=== PATIENT | male | born 1980 | race Caucasian/White ===

== ENCOUNTER 2019-09-08 14:00 | Emergency (ER) | payer SELFPAY ==
--- NOTE | 2019-09-08 15:02 | EDM.PDOC ---
ED HPI GENERAL MEDICAL PROBLEM - General Chief Complaint: Skin Complaint Stated Complaint: SKIN MITES Time Seen by Provider: 09/08/19 14:35 Source of Information: Reports: Patient History Limitations: Reports: No Limitations - History of Present Illness INITIAL COMMENTS - FREE TEXT/NARRATIVE: Presents reporting infection around numerous cuticles. 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 He shows me pictures on his phone of his cuticles a few days ago. They appeared to have some skin breakdown and purulent drainage. Now they are dry and almost completely healed. On his nose he has what appears to be some kind of burn over the bridge of his nose. The patient states that he had what sounds like some pustules there and he put plain vinegar on them and gave himself a chemical burn. That he has been treating with an anti-bacterial ointment. He states that he takes a bath every day with a couple of cups of apple cider vinegar in it to prevent "infections". - Related Data Allergies Allergy/AdvReac Type Severity Reaction Status Date / Time No Known Allergies Allergy Verified 09/08/19 14:39 Home Meds: Home Meds . [No Known Home Meds] 09/08/19 [History] Past Medical History - Past Health History Medical/Surgical History: Denies Medical/Surgical History Social & Family History - Family History Family Medical History: Noncontributory - Tobacco Use Smoking Status *Q: Never Smoker ED ROS GENERAL - Review of Systems Review Of Systems: Comprehensive ROS is negative, except as noted in HPI. ED EXAM, SKIN/RASH Exam: See Below Exam Limited By: No Limitations General Appearance: Alert, No Apparent Distress Ears: Normal External Exam Nose: Normal Inspection Throat/Mouth: Normal Inspection Head: Atraumatic, Normocephalic Neck: Normal Inspection, Supple Respiratory/Chest: No Respiratory Distress Cardiovascular: Normal Peripheral Pulses Neurological: Alert, Oriented Psychiatric: Normal Affect, Normal Mood Skin: Warm, Dry, Intact, Normal Color, Other (The cuticles are dry without redness, swelling, drainage. They do to appear to be healing/granulating after a recent skinfold infection. The bridge of the nose is a 3 x 4 cm erythematous burn without drainage or swelling that appears clean and covered with an 8 minute.) Course - Vital Signs Last Recorded V/S: Last Vital Signs Temp 36.4 C 09/08/19 14:35 Pulse 94 12/28/19 14:35 Resp 16 09/08/19 14:35 BP 115/86 09/08/19 14:35 Pulse Ox 96 09/08/19 14:35 Departure - Departure Time of Disposition: 15:04 Disposition: Home, Self-Care 01 Condition: Good Clinical Impression: Acute paronychia of finger Qualifiers: Laterality: unspecified laterality Qualified Code(s): L03.019 - Cellulitis of unspecified finger - Discharge Information Referrals: PCP,None [Primary Care Provider] - [facility] [Outside] [facility] [Outside] Additional Instructions: The following information is given to patients seen in the emergency department who are being discharged to home. This information is to outline your options for follow-up care. We provide all patients seen in our emergency department with a follow-up referral. The need for follow-up, as well as the timing and circumstances, are variable depending upon the specifics of your emergency department visit. If you don't have a primary care physician on staff, we will provide you with a referral. We always advise you to contact your personal physician following an emergency department visit to inform them of the circumstance of the visit and for follow-up with them and/or the need for any referrals to a consulting specialist. The emergency department will also refer you to a specialist when appropriate. This referral assures that you have the opportunity for follow-up care with a specialist. All of these measure are taken in an effort to provide you with optimal care, which includes your follow-up. Under all circumstances we always encourage you to contact your private physician who remains a resource for coordinating your care. When calling for follow-up care, please make the office aware that this follow-up is from your recent emergency room visit. If for any reason you are refused follow-up, please contact the [facility] Emergency Department at and asked to speak to the emergency department charge nurse. 1. Not use on diluted vinegar on skin infections. 2. Prevent by good handwashing, wearing gloves and using antibacterial ointment on wounds. Sepsis Event Note - Evaluation Sepsis Screening Result: No Definite Risk - Focused Exam Vital Signs: Vital Signs Temp Pulse Resp BP Pulse Ox 09/08/19 14:35 36.4 C 94 16 115/86 96 Date Exam was Performed: 09/08/19 Time Exam was Performed: 14:54
== END 2019-09-08 15:20 | disposition home or self-care (01) ==
LOC: MW.ED 14:00
DX: L03.019 Cellulitis of unspecified finger (principal)
CPT/HCPCS: 99282

== ENCOUNTER 2020-01-20 18:28 | Emergency (ER) | payer SELFPAY ==
[2020-01-20] MEDS ORDERED: Sulfamethoxazole/Trimethoprim 800-160 MG Tab PO ONE (19:05)
[2020-01-20] MEDS ORDERED: Bacitracin Oint 1 GM U/D Packet TOP ONE (19:05)
[2020-01-20] MEDS ORDERED: Cephalexin 500 MG Cap PO ONE (19:05)
--- NOTE | 2020-01-20 19:11 | EDM.PDOC ---
ED HPI GENERAL MEDICAL PROBLEM - General Chief Complaint: General Stated Complaint: POSSIBLE PARASITE Time Seen by Provider: 01/20/20 18:59 Source of Information: Reports: Patient History Limitations: Reports: No Limitations - History of Present Illness INITIAL COMMENTS - FREE TEXT/NARRATIVE: History of present illness: [Patient is 40-year-old male who presents with concern for a possible parasite in the skin and surface of his nose. States he has had this in the past, it comes and goes for the last 2 years, does not take any medications routinely to treat his symptoms. Thinks he has been on antibiotics for it in the past. Denies fever, trouble breathing, respiratory distress, chest pain, other URI symptoms. Admits to picking at the surface of the skin of his nose and over the bridge of his nose.] Review of systems: As per history of present illness and below otherwise all systems reviewed and negative. Past medical history: As per history of present illness and as reviewed below otherwise noncontributory. Surgical history: As per history of present illness and as reviewed below otherwise noncontributory. Social history: No reported history of drug or alcohol abuse. Family history: As per history of present illness and as reviewed below otherwise noncontributory. Physical exam: General: Awake, alert, no acute distress, A&O X3. HEENT: Atraumatic, normocephalic, pupils reactive, negative for conjunctival pallor or scleral icterus, mucous membranes moist, throat clear, neck supple, nontender, trachea midline. Lungs: Clear to auscultation, breath sounds equal bilaterally, chest nontender. Heart: RRR, normal S1S2, no JVD. Abdomen: Soft, nondistended, nontender. Negative for masses or hepatosplenomegaly. Negative for costovertebral tenderness. Pelvis: Stable nontender. Genitourinary: Deferred. Rectal: Deferred. SKIN: Erythema and mild swelling involving the bridge of the nose extending distally. Superficial ulceration of that area likely secondary to patient's recurrent rubbing and picking at the site. No purulent discharge. Not hot to the touch. Nares are patent bilaterally Extremities: Atraumatic, negative for cords or calf pain. Neurovascular unremarkable. Neuro: Awake, alert, oriented. Motor and sensory grossly intact throughout. Exam nonfocal. Diagnostics: [] Therapeutics: [] Impression: [] Plan: [] Definitive disposition and diagnosis as appropriate pending reevaluation and review of above. Nose Pain Score (Numeric/FACES): 7 - Related Data Allergies Allergy/AdvReac Type Severity Reaction Status Date / Time No Known Allergies Allergy Verified 01/20/20 18:38 Home Meds: Home Meds Sulfamethoxazole/Trimethoprim [Bactrim Ds Tablet] 1 each PO BID #14 tablet 01/19 [Rx] cephALEXin [Keflex] 500 mg PO QID #28 capsule 01/20/20 [Rx] Past Medical History - Past Health History Medical/Surgical History: Denies Medical/Surgical History - Infectious Disease History Infectious Disease History: Reports: None Social & Family History - Family History Family Medical History: Noncontributory - Tobacco Use Smoking Status *Q: Current Every Day Smoker Years of Tobacco use: 25 Packs/Tins Daily: 0.5 - Recreational Drug Use Recreational Drug Use: No ED ROS GENERAL - Review of Systems Review Of Systems: Comprehensive ROS is negative, except as noted in HPI. ED EXAM, GENERAL - Physical Exam Exam: See Below (see h and p) Course - Vital Signs Text/Narrative:: Patient with evidence of nasal cellulitis. Appears to be mild. No respiratory distress. Extraocular movements intact. Nontoxic otherwise and well-appearing with stable vital signs. Appropriate for outpatient management with antibiotics. Return precautions provided. Stable and well-appearing at discharge. Last Recorded V/S: Last Vital Signs Temp 36.3 C 01/20/20 18:38 Pulse 80 01/20/20 18:38 Resp 20 01/20/20 18:38 BP 118/69 01/20/20 18:38 Pulse Ox 99 01/20/20 18:38 - Orders/Labs/Meds Meds: Medications Discontinued Medications Generic Name Dose Route Start Last Admin Trade Name Freq PRN Reason Stop Dose Admin Bacitracin 1 dose 01/20/20 19:01/20/20 19:18 Bacitracin Oint 1 Gm TOP 01/20/20 19:06 1 dose ONETIME ONE Administration Cephalexin 500 mg 01/20/20 19:01/20/20 19:18 Keflex PO 01/20/20 19:06 500 mg ONETIME ONE Administration Trimethoprim/Sulfamethoxazole 1 tab 01/20/20 19:05 01/20/20 19:18 Septra Ds PO 01/20/20 19:06 1 tab ONETIME ONE Administration Departure - Departure Time of Disposition: 19:11 Disposition: Home, Self-Care 01 Condition: Good Clinical Impression: Cellulitis of nose, external - Discharge Information Prescriptions: cephALEXin [Keflex] 500 mg PO QID #28 capsule Sulfamethoxazole/Trimethoprim [Bactrim Ds Tablet] 1 each PO BID #14 tablet Instructions: Cellulitis, Adult, [id number] Referrals: PCP,None [Primary Care Provider] - Forms: ED Department Discharge Additional Instructions: Follow-up with primary care doctor. Take all medications as prescribed. Return to the ER with any new or worsening symptoms. The following information is given to patients seen in the emergency department who are being discharged to home. This information is to outline your options for follow-up care. We provide all patients seen in our emergency department with a follow-up referral. The need for follow-up, as well as the timing and circumstances, are variable depending upon the specifics of your emergency department visit. If you don't have a primary care physician on staff, we will provide you with a referral. We always advise you to contact your personal physician following an emergency department visit to inform them of the circumstance of the visit and for follow-up with them and/or the need for any referrals to a consulting specialist. The emergency department will also refer you to a specialist when appropriate. This referral assures that you have the opportunity for follow-up care with a specialist. All of these measure are taken in an effort to provide you with optimal care, which includes your follow-up. Under all circumstances we always encourage you to contact your private physician who remains a resource for coordinating your care. When calling for follow-up care, please make the office aware that this follow-up is from your recent emergency room visit. If for any reason you are refused follow-up, please contact the [facility] Emergency Department at and asked to speak to the emergency department charge nurse. Sepsis Event Note - Evaluation Sepsis Screening Result: No Definite Risk - Focused Exam Vital Signs: Vital Signs Temp Pulse Resp BP Pulse Ox 01/20/20 18:38 36.3 C 80 20 118/69 99 Date Exam was Performed: 01/20/20 Time Exam was Performed: 19:22
== END 2020-01-20 19:24 | disposition home or self-care (01) ==
LOC: MW.ED 18:28
DX: J34.0 Abscess, furuncle and carbuncle of nose (principal); F17.210 Nicotine dependence, cigarettes, uncomplicated
CPT/HCPCS: 99283; A9270; 99282

== ENCOUNTER 2022-01-16 09:56 | Emergency (ER) | payer SELFPAY ==
[2022-01-16] MEDS ORDERED: Ketorolac 60 MG/2 ML SDV IM ONE (11:03)
== END 2022-01-16 12:37 | disposition home or self-care (01) ==
LOC: MW.ED 09:56
DX: S90.32XA Contusion of left foot, initial encounter (principal); X50.1XXA Overexertion from prolonged static or awkward postures, initial encounter
CPT/HCPCS: 73630; 96372; 99283; J1885; 99282